=== PATIENT | male | born 1935 | race Caucasian/White ===

== ENCOUNTER 2017-06-15 10:52 | Day surgery (SDC) | payer MEDICARE, BC ==
[~2017-06-15 10:52] MED LIST: LACTATED RINGERS 1,000 ML IV SCH; MORPHINE SULFATE 10 MG/ML SYRINGE IV PRN; ONDANSETRON 4 MG/2 ML VIAL IVP PRN
[2017-06-15] MEDS ORDERED: SODIUM CHLORIDE 0.9% 1,000 ML IV SCH (12:04)
[2017-06-15] MEDS ORDERED: ceFAZolin IN SWFI 2 GM/20 ML SYRINGE IVP ONE (12:04)
[2017-06-15] MEDS ORDERED: ceFAZolin 1,000 MG in SODIUM CHLORIDE 0.9% IRRIGATIO 250 ML IRRIGATION ONE (12:04)
[2017-06-15 13:33] LABS: INR 2.1 (<1.2)
[2017-06-15] MEDS ORDERED: fentaNYL (PF) 50 MCG/ML 2 ML AMP ONE (14:38)
[2017-06-15] MEDS ORDERED: PROPOFOL 10 MG/ML 20 ML VIAL IV ONE (14:38)
[2017-06-15] MEDS ORDERED: MIDAZOLAM 2 MG/2 ML VIAL ONE (14:38)
[2017-06-15] MEDS ORDERED: IODIXANOL 270 MG/ML 50 ML ML IV ONE (15:23)
[2017-06-15] MEDS ORDERED: IOHEXOL 350 MG/ML 50ML BOTTLE INJ ONE (15:23)
[2017-06-15] MEDS ORDERED: LIDOCAINE 1% INJ 10MG/ML (20 ML MDV) SQ ONE (15:30)
[2017-06-15 15:52] LABS: Glucose,Whole Blood 92 mg/dL (75-99)
[2017-06-15] MEDS ORDERED: IOHEXOL 350 MG/ML (PER ML) 100ML BTL INJ ONE (16:51)
[2017-06-15] MEDS ORDERED: HYDROcodone/APAP 5-325MG 1 EACH TAB PO PRN (17:05)
[2017-06-15] MEDS ORDERED: ACETAMINOPHEN TAB 325 MG TAB PO PRN (17:05)
[2017-06-15] MEDS ORDERED: ACETAMINOPHEN IV (For NPO) 1,000 MG in EMPTY BAG 1 BAG IVPB ONE (17:05)
[2017-06-15 17:26] VITALS: RESP 18
--- NOTE | 2017-06-15 17:38 | PCN ---
PROCEDURE NOTE Mr. Rodrigez is a patient of Dr. Simba Pink and Dr. Segundo who has had worsening heart failure symptoms and was recently admitted in the month of May 2017 to [facility] with heart failure symptoms. He is 100% paced in the right ventricle. His left subclavian vein was patent on venography and an upgrade to a PRESS CATCHER device for heart failure was recommended after a detailed discussion. He has known mitral valve repair with coronary artery bypass grafting at the [facility] 15 years back. Left ventricular ejection fraction is severely reduced at 30-35%. Class 3 congestive heart failure. He also has diabetes and is on insulin. He has hypothyroidism and permanent atrial fibrillation. He underwent an upgrade to a biventricular pacemaker for heart failure management. DESCRIPTION OF PROCEDURE: Patient brought to the EP lab in a fasting state. Written informed consent was obtained prior to the procedure. The left pectoral area was prepped and draped as per protocol. 1% lidocaine was used for local anesthesia. Then a 4 cm incision was made parallel to the deltopectoral groove and carried down to the level of the generator. The generator was explanted. The leads were freed and then the generator was found to be in this subcutaneous tissue. A new subfascial pocket was made. The new subfascial pocket was made. The left axillary vein access was obtained via an appropriately-sized introducer sheath. The coronary sinus was accessed and venogram was performed. The left lateral vein was sub selected and the lead was placed in the left lateral vein. The pacing threshold was 2.25 V at 0.5 milliseconds. Pacing impedance 940 ohms and R-waves 12 mV. The RV pacing impedance was 490 ohms, R-waves 12 mV and pacing threshold 1 V at 0.5 milliseconds. 10 V testing were negative for the LV lead. The patient was in atrial fibrillation. The atrial lead was simply capped connected to the biventricular pacemaker generator. The explanted generator was a [employer] SESR serial number [id number]. Originally implanted in July 2015. The new generator implanted was a [employer] biventricular pacemaker model number [id number], serial #[id number]. The leads and generator were then placed in the subfascial pocket. The wound was closed in 3 layers and dressed per protocol. The device was programmed to biventricular pacing with 30 millisecond LV offset. VVI 60-130 ppm. RESULTS: Successful upgrade to a biventricular pacemaker for heart failure management. PROCEDURES PERFORMED: 1. Explantation of old single-chamber generator. 2. Implantation of new biventricular pacemaker. 3. New subfascial pocket. 4. Implantation of a new LV lead. SATHYA / NILAN: [id number] /
--- NOTE | 2017-06-15 17:38 | LTR ---
DATE OF SERVICE: 06/15/[address] Pink: I had the pleasure of seeing Mr. Forest Rodrigez. Mr. Rodrigez underwent successful upgrade to a biventricular pacemaker and I will continue his current medications. Hopefully this will help his heart failure symptoms since he was originally 100% paced in the right ventricle. Thank you for entrusting me in the care of your patient. With warm regards, Sincerely, SATHYA / NILAN: [id number] /
[2017-06-15 17:46] LABS: Glucose,Whole Blood 88 mg/dL (75-99)
[2017-06-15] MEDS ORDERED: WARFARIN 2 MG TAB PO SCH (18:00)
[2017-06-15] MEDS ORDERED: INSULIN DETEMIR 100 UNIT/ML 10 ML VIAL SQ SCH (20:00)
[2017-06-15] MEDS: METOPROLOL SUCCINATE (ER) 50 MG TAB.ER.24H PO SCH (20:24)
[2017-06-15 20:25] LABS: Glucose,Whole Blood 243 mg/dL (75-99)
[2017-06-15] MEDS: INSULIN ASPART 100 UNIT/ML 1 ML 10 ML VIAL SQ SCH (20:25)
[2017-06-15] MEDS: ceFAZolin IN SWFI 2 GM/20 ML SYRINGE IVP SCH (20:54)
[2017-06-15] MEDS ORDERED: ATORVASTATIN 40 MG TAB PO SCH (21:00)
[2017-06-16] MEDS: ceFAZolin IN SWFI 2 GM/20 ML SYRINGE IVP SCH ×2 (02:10→08:39)
[2017-06-16 06:56] LABS: Glucose,Whole Blood 77 mg/dL (75-99)
--- NOTE | 2017-06-16 06:58 | XR ---
EXAMINATION TYPE: XR chest 2V DATE OF EXAM: 06/16/2017 COMPARISON: Chest x-ray January 01, 2016. HISTORY: Pacemaker placement. TECHNIQUE: Frontal and lateral views of the chest are obtained. FINDINGS: There is chronic parenchymal change with increasing reticular interstitial prominence. The re is no large pleural effusion or pneumothorax seen. The cardiac silhouette size remains enlarged. S ternal wires are redemonstrated. There is stable pacemaker with leads in right atrium and right ventr icle, there is new coronary sinus lead noted. The osseous structures are intact. Atherosclerotic thor acic aorta is present. IMPRESSION: New pacemaker lead into the coronary sinus. There is cardiomegaly with increasing interst itial prominence felt to reflect mild to moderate interstitial edema on background of fibrosis.
[2017-06-16 07:50] VITALS: TEMP 98.2
--- NOTE | 2017-06-16 08:20 | P.DS ---
Providers Attending physician: Jesus Quintanilla Primary care physician: Simba Pink [facility] Course: Patient is doing well. He sitting up in bed eating breakfast. No chest discomfort no undue shortness of breath minimal discomfort of the device site. No hematoma minimal soakage noted. Afebrile 98.2F blood pressure 137/46. His mercury respirations 18 pulse in the 70s Sounds are clear no rhonchi no crackles Heart sounds are soft and normal S1 normal S2 No lower extremity edema Impression Cardiomyopathy Systolic LV dysfunction EF 35% 100% RV paced Likely nonischemic as a result of RV pacing Status post upgrade to a biventricular pacemaker Plan Continue home medications as before and follow-up in the office in 5 days in the device clinic and follow Dr. Segundo scheduled Patient Condition at Discharge: Stable Plan - Discharge Summary Discharge Rx Participant: No New Discharge Prescriptions: New Spironolactone 50 mg PO DAILY #30 tab Discontinued Potassium Chloride [Klor-Con 20] 20 meq PO DAILY Spironolactone [Aldactone] 25 mg PO DAILY No Action Metoprolol Succinate (ER) [Toprol XL] 50 mg PO BID Febuxostat [Uloric] 40 mg PO DAILY Isosorbide Mononitrate [Isosorbide Mononitrate ER] 30 mg PO DAILY Furosemide [Lasix] 80 mg PO DAILY Fosinopril [Monopril] 10 mg PO DAILY Digoxin [Lanoxin] 125 mcg PO DAILY Atorvastatin [Lipitor] 40 mg PO HS Docusate [Colace] 100 mg PO BID Cholecalciferol [Vitamin D3] 1,000 unit PO DAILY Ascorbic Acid [Vitamin C] 500 mg PO DAILY Warfarin [Coumadin] 1 mg PO MOFR Warfarin [Coumadin] 2 mg PO SUTUWETHSA Aspirin [Adult Low Dose Aspirin EC] 81 mg PO DAILY Insulin Glargine [Lantus] 35 unit SQ 2000 Insulin Lispro [humaLOG Kwikpen] 6 unit SQ TID Ipratropium-Albuterol Nebulize [Duoneb 0.5 mg-3 mg/3 ml Soln] 3 ml INHALATION TID Levothyroxine Sodium [Synthroid] 50 mcg PO DAILY Discharge Medication List Ascorbic Acid [Vitamin C] 500 mg PO DAILY 11/04/15 [History] Aspirin [Adult Low Dose Aspirin EC] 81 mg PO DAILY 11/04/15 [History] Atorvastatin [Lipitor] 40 mg PO HS 11/04/15 [History] Cholecalciferol [Vitamin D3] 1,000 unit PO DAILY 11/04/15 [History] Digoxin [Lanoxin] 125 mcg PO DAILY 11/04/15 [History] Docusate [Colace] 100 mg PO BID 11/04/15 [History] Febuxostat [Uloric] 40 mg PO DAILY 11/04/15 [History] Fosinopril [Monopril] 10 mg PO DAILY 11/04/15 [History] Furosemide [Lasix] 80 mg PO DAILY 11/04/15 [History] Isosorbide Mononitrate [Isosorbide Mononitrate ER] 30 mg PO DAILY 11/04/15 [ History] Metoprolol Succinate (ER) [Toprol XL] 50 mg PO BID 11/04/15 [History] Warfarin [Coumadin] 1 mg PO MOFR 11/04/15 [History] Warfarin [Coumadin] 2 mg PO SUTUWETHSA 11/04/15 [History] Insulin Glargine [Lantus] 35 unit SQ 2000 06/07/17 [History] Insulin Lispro [humaLOG Kwikpen] 6 unit SQ TID 06/07/17 [History] Ipratropium-Albuterol Nebulize [Duoneb 0.5 mg-3 mg/3 ml Soln] 3 ml INHALATION TID 06/07/17 [History] Levothyroxine Sodium [Synthroid] 50 mcg PO DAILY 06/09/17 [History] Spironolactone 50 mg PO DAILY #30 tab 06/15/17 [Rx] Activity/Diet/Wound Care/Special Instructions: PATIENT EDUCATION MATERIAL Instructions following a heart rhythm device implant. 1. Keep dressing DRY for ONE week. You may cover the area with Saran or Cling Wrap, prior to a shower. 2. The dressing will be removed after one week in the Device Clinic @ [facility]. Absorbable sutures were used to close the wound. 3. Avoid raising the [left] arm above the shoulder level. [6 week restriction] 4. Avoid arm movements, like backscratching, rubbing the head, or pulling on a cord. (6 weeks restriction) 5. Gentle range of motion movements of the shoulder, closest to the incision should be performed to avoid a frozen shoulder. (Pendulum exercises of the shoulder) 6. The opposite arm may be used freely. 7. Avoid driving for 7 days. 8. Avoid activities such as golfing, swimming, weed whacking, lifting more than 10 pounds weight, bowling, gymnastics and weight training/lifting. (6 weeks restriction) 9. Activities such as wood chopping with an axe, pull-ups in the gymnasium, power lifting, arc-welding, being close to home induction cooktops will always be a problem. In case of any problems, please call [facility], Tanja Flores, @ [phone], Attention: Device Clinic Stop oral potassium Increase spironolactone to 50 mg by mouth daily Prescriptions given Follow-up in The device clinic in 5 days and follow-up with Dr. Segundo as scheduled Discharge Disposition: HOME SELF-CARE
[2017-06-16] MEDS: METOPROLOL SUCCINATE (ER) 50 MG TAB.ER.24H PO SCH (08:39)
[2017-06-16] MEDS ORDERED: FUROSEMIDE 80 MG TAB PO SCH (09:00)
[2017-06-16] MEDS ORDERED: ASPIRIN 81 MG PO SCH (09:00)
[2017-06-16] MEDS ORDERED: ISOSORBIDE MONONITRATE ER 30 MG TAB.ER.24H PO SCH (09:00)
[2017-06-16] MEDS ORDERED: DIGOXIN 125 MCG TAB PO SCH (09:00)
[2017-06-16] MEDS ORDERED: SPIRONOLACTONE 25 MG TAB PO SCH (09:00)
[2017-06-16] MEDS ORDERED: LISINOPRIL 10 MG TAB PO SCH (09:00)
[2017-06-16] MEDS ORDERED: ALLOPURINOL 100 MG TAB PO SCH (09:00)
[2017-06-16 09:38] VITALS: BMI 35.2
[2017-06-16] MEDS: INSULIN ASPART 100 UNIT/ML 1 ML 10 ML VIAL SQ SCH ×2 (11:31→12:28)
[2017-06-16 11:53] VITALS: BP 114/55; PULSE 60
[2017-06-16 12:01] LABS: Glucose,Whole Blood 211 mg/dL (75-99)
[2017-06-16] MEDS ORDERED: ceFAZolin IN SWFI 2 GM/20 ML SYRINGE IVP SCH (20:00)
== END 2017-06-16 15:05 | disposition home or self-care (01) ==
LOC: CATHEP 10:52 → 3OBS 16:29 → CATHEP 06-16 15:05
PROVIDERS: ATTEND Internal Medicine Clinical Cardiac Electrophysiology
DX: I25.5 Ischemic cardiomyopathy (principal); Z45.018 Encounter for adjustment and management of other part of cardiac pacemaker; I48.2 Chronic atrial fibrillation; Z79.01 Long term (current) use of anticoagulants; I25.10 Atherosclerotic heart disease of native coronary artery without angina pectoris; I11.0 Hypertensive heart disease with heart failure; I50.9 Heart failure, unspecified; Z87.891 Personal history of nicotine dependence; Z95.1 Presence of aortocoronary bypass graft; E11.9 Type 2 diabetes mellitus without complications; Z79.4 Long term (current) use of insulin; E03.9 Hypothyroidism, unspecified; Z79.899 Other long term (current) drug therapy; E78.00 Pure hypercholesterolemia, unspecified; Z95.2 Presence of prosthetic heart valve; I25.2 Old myocardial infarction; E66.01 Morbid (severe) obesity due to excess calories; Z68.35 Body mass index [BMI] 35.0-35.9, adult; Z79.82 Long term (current) use of aspirin
CPT/HCPCS: 33225; 33229; 85610; 83036; 71020; C1769 ×5; C1894; C1892; C1730; C1900; C2621; Q9967; Q9966; J0690 ×3; J2001